=== PATIENT | male | born 1965 | race Caucasian/White ===

== ENCOUNTER 2019-11-09 15:32 | Observation (INO) ==
[2019-11-09] MEDS ORDERED: SODIUM CHLORIDE 0.9% 1000ML 1,000 ML IV ONE (17:11)
[2019-11-09] MEDS ORDERED: KETOROLAC TROMETHAMINE 15 MG/ML VIAL IV STA (17:11)
--- NOTE | 2019-11-09 17:11 | Emergency Department Note ---
History of Present Illness General Chief complaint: Kidney Stone Stated complaint: KIDNEY STONE Time Seen by Provider: 11/09/19 17:07 History of Present Illness Provider complaint: Right-sided flank pain Onset (ago): day(s) 3 Location: abdomen (Right flank) Radiation: non-radiation Severity: severe Maximum Pain Intensity: 6 Current Pain Intensity: 6 54-year-old male presents emergency department for right-sided flank pain. He states he has been having the pain for last 3 days. He rates pain as 10 out of 10 severe. He states that he was recently in the emergency department twice over the last week. He states he was diagnosed with a right-sided kidney stone. He was in the emergency department yesterday and was advised to stay by the doctor or the patient so he can manage pain at home. He states he can no longer bear the pain at home anymore. He reports no fevers. He reports nausea but no vomiting. He reports mild hematuria. No dysuria. Home Medications Home Medications Medication Instructions Recorded Confirmed Type oxycodone 5 mg PO Q6H PRN #14 tab 11/07/19 11/09/19 Rx tamsulosin [Flomax] 0.4 mg PO DAILY #7 cap 11/07/19 11/09/19 Rx hydrocodone-acetaminophen [[place]] 1 tab PO Q6H PRN #14 tab 11/08/19 11/09/19 Rx Allergies Allergy/AdvReac Type Severity Reaction Status Date / Time No Known Allergies Allergy Unverified 11/09/19 16:46 Past Med/Surg History Social History Preferred Language: Lebanese Communication Ability: Effective Glass Breaker Required: No Beliefs That Will Affect Care: None Current Living Situation: Alone Other Information That Helps Us Care for You: No Feels Safe at Home: Yes Safety Concerns: Feels Safe At This Time Smoking Status: Never smoker Do You Dip or Chew Tobacco: No ; Hx Alcohol Use: Yes Alcohol Intake Frequency: Weekly Hx Substance Use: No Review of Systems A total of 10 systems reviewed and were otherwise negative Physical Exam Vital Signs Vital Signs - 24 hr 11/09/19 15:40 11/09/19 17:31 11/09/19 18:00 Temperature 37.6 C H Temperature Source Oral Pulse Rate 76 70 69 Pulse Rate from SpO2 Sensor 71 72 Respiratory Rate 18 26 H 15 Respiratory Effort / Characteristics Non-Labored Spontaneous Respiratory Depth Normal Respiratory Pattern Regular Blood Pressure 151/87 H 167/104 H 144/85 H Blood Pressure Mean 108 119 91 Pulse Oximetry 94 97 91 Oxygen Delivery Method Room Air Room Air Sepsis Recent Fever Within 48 Hours No Sepsis New/Unexplained Change in Mental Status No Sepsis Action Taken by Nursing No Action Required Physical Exam GENERAL: He is oriented to person, place, and time. He appears well-developed and well-nourished. He does not appear distressed. HENT: Exam performed. - Head: Normocephalic and atraumatic. - Right Ear: External ear normal. No mastoid tenderness. - Left Ear: External ear normal. No mastoid tenderness. - Mouth/Throat: The oropharynx is clear and moist. No trismus in the jaw. No dental abscesses or uvula swelling. No oropharyngeal exudate or tonsillar abscesses. EYES: Conjunctivae and EOM are normal. Pupils are equal, round, and reactive to light. Right eye exhibits no discharge. Left eye exhibits no discharge. No scleral icterus. NECK: Normal range of motion. Neck supple. No JVD present. No spinous process tenderness present. No carotid bruit present. No rigidity. No tracheal deviation and normal range of motion present. No Brudzinski's sign and no Kernig's sign noted. CV: Normal rate, regular rhythm, normal heart sounds and intact distal pulses. There is no peripheral edema. Palpable radial pulses bue. PULM/CHEST: Effort normal and breath sounds normal. No respiratory distress. No stridor. He has no wheezes. He has no rales. - Chest Wall: He exhibits no tenderness. ABD: The abdomen is soft. Bowel sounds are normal. He has no distension. No mass is present. There is no tenderness. There is no rebound, no guarding, no Gómez's sign and no tenderness at McBurney's point. Rovsig negative. Right- sided CVA tenderness. MUSC/SKEL: Normal range of motion. There is no peripheral edema, tenderness or deformity. LYMPH: No cervical adenopathy. NEURO: He is alert and oriented to person, place, and time. He has normal strength. No cranial nerve deficit or sensory deficit. Coordination and gait normal. GCS eye subscore is 4. GCS verbal subscore is 5. GCS motor subscore is 6. Cerebellar tests wnl. SKIN: Skin is warm and dry. He is not diaphoretic. PSYCH: He has a normal mood and affect. Behavior is normal. Judgment and thought content normal. Course Course 1709: The patient was evaluated in room C1. A complete history and physical exam was performed. EMR reviewed. This is the patient's third visit to the emergency department in the last 3 days. On November 06 the patient had an obstructing right kidney stone measuring 4.5 mm with resultant right hydroureteronephrosis. He was offered inpatient admission on his previous vis its but declined. Patient will be admitted to the hospitalist service for pain control to be evaluated by urology. Administered Medications Sodium Chloride (Nss 1000ml) 1,000 mls @ 125 mls/hr IV .Q8H CHILO Stop: 11/10/19 10:00 Last Admin: 11/09/19 20:00 Dose: 125 mls/hr Documented by: [id number] Discontinued Medications Sodium Chloride (Nss 1000ml) 1,000 mls @ 999 mls/hr IV .Q1H1M ONE Stop: 11/09/19 18:11 Last Infusion: 11/09/19 18:37 Dose: 0 mls/hr Documented by: [id number] Admin: 11/09/19 17:32 Dose: 999 mls/hr Documented by: [id number] Ketorolac Tromethamine (Toradol) 15 mg IV NOW STA Stop: 11/09/19 17:12 Last Admin: 11/09/19 17:32 Dose: 15 mg Documented by: [id number] Medical Decision Making Laboratory Data Result diagrams: 11/09/19 17:17 11/09/19 17:17 Lab Results 11/09/19 11/09/19 11/09/19 Range/Units 17:17 17:17 17:30 WBC 11.70 H (4.8-10.8) K/uL RBC 4.92 (4.7-6.1) M/uL Hgb 15.5 (14.0-18.0) g/dL Hct 45.1 (42-52) % MCV 91.7 (80-100) fL MCH 31.5 (25-34) pg MCHC 34.4 (32-36) g/dL RDW Std Deviation 42.3 (36.4-46.3) fL RDW Coeff of Esteban 12.6 (11.5-14.5) % Plt Count 169 (130-400) K/uL MPV 11.0 H (7.4-10.4) fL Immature Gran % (Auto) 0.3 % Neut % (Auto) 84.5 % Lymph % (Auto) 8.2 % [place] % (Auto) 6.6 % Eos % (Auto) 0.2 % Baso % (Auto) 0.2 % Immature Gran # (Auto) 0.03 H (0.00-0.02) K/uL Neut # (Auto) 9.90 H (1.4-6.5) K/uL Lymph # (Auto) 0.96 L (1.2-3.4) K/uL [place] # (Auto) 0.77 H (0.11-0.59) K/uL Eos # (Auto) 0.02 (0-0.5) K/uL Baso # (Auto) 0.02 (0-0.2) K/uL Sodium 134 L (136-145) mmol/L Potassium 3.9 (3.5-5.1) mmol/L Chloride 101 (98-107) mmol/L Carbon Dioxide 29 (21-32) mmol/L Anion Gap 4.0 (3-11) BUN 14 (7-18) mg/dl Creatinine 1.62 H (0.6-1.4) mg/dl Est Cr Clr Drug Dosing 56.4 ml/min Est GFR ( Amer) 54.9 Est GFR (Non-Af Amer) 47.4 BUN/Creatinine Ratio 8.5 L (10-20) Glucose 112 H (70-99) mg/dl Calcium 8.8 (8.5-10.1) mg/dl Urine Color Yellow Urine Appearance Clear (Clear) Urine pH 5.0 (4.5-7.5) Ur Specific [place] 1.015 (1.000-1.030) Urine Protein Negative (Negative) Urine Glucose (UA) Negative (Negative) Urine Ketones Negative (Negative) Urine Blood 2+ H (Negative) Urine Nitrite Negative (Negative) Urine Bilirubin Negative (Negative) Urine Urobilinogen Negative (Negative) Ur Leukocyte Esterase Negative (Negative) Urine WBC (Auto) 1-5 (0-5) /hpf Urine RBC (Auto) 0-4 (0-4) /hpf U Hyaline Cast (Auto) 1-5 (0-5) /lpf U Epithel Cells (Auto) 0-5 (0-5) /lpf Urine Bacteria (Auto) Negative (Negative) MDM Narrative The patient was evaluated in room C1. A complete history and physical exam was performed. EMR reviewed. This is the patient's third visit to the emergency department in the last 3 days. On November 06 the patient had an obstructing right kidney stone measuring 4.5 mm with resultant right hydroureteronephrosis. He was offered inpatient admission on his previous visits but declined. Patient will be admitted to the hospitalist service for pain control to be evaluated by urology. Impression & Plan Calculus of distal ureter, Obstruction of right ureter, Acute kidney injury Discharge Plan Visit Data *Final* Discharge Date/Time: 11/09/19 18:54 Chief Complaint: Kidney Stone Stated Complaint: KIDNEY STONE ED Provider: John Gale Discharge Problem: Calculus of distal ureter, Obstruction of right ureter, Acute kidney injury Patient Disposition: Admitted As Inpatient Discharge Instructions Interventions: ED Discharge Assessment Last Done: 11/09/19 18:54
[2019-11-09 17:37] LABS: Basophils # (auto) 0.02 K/uL (0-0.2); Basophils % (auto) 0.2 %; Eosinophils # (auto) 0.02 K/uL (0-0.5); Eosinophils % (auto) 0.2 %; Hematocrit (blood only) 45.1 % (42-52); Hemoglobin 15.5 g/dL (14.0-18.0); Immature Granulocytes # (auto) 0.03 K/uL (0.00-0.02); Immature Granulocytes % (auto) 0.3 %; Lymphocytes # (auto) 0.96 K/uL (1.2-3.4); Lymphocytes % (auto) 8.2 %; Mean Corpuscular Hemoglobin 31.5 pg (25-34); Mean Corpuscular Hgb Conc 34.4 g/dL (32-36); Mean Corpuscular Volume 91.7 fL (80-100); Monocytes # (auto) 0.77 K/uL (0.11-0.59); Monocytes % (auto) 6.6 %; Neutrophils % (auto) 84.5 %; Platelet Count 169 K/uL (130-400); RDW Coefficient of Variation 12.6 % (11.5-14.5); RDW Standard Deviation 42.3 fL (36.4-46.3); Red Blood Count 4.92 M/uL (4.7-6.1)
[2019-11-09 17:44] LABS: BUN Creatinine Ratio 8.5 (10-20); Calcium 8.8 mg/dl (8.5-10.1); Creatinine Clr Calc Pharmacy 56.4 ml/min; Est GFR (African American) 54.9; Est GFR (Non-African American) 47.4; Potassium 3.9 mmol/L (3.5-5.1)
[2019-11-09 17:48] LABS: Appearance Urine Clear (Clear); Bacteria Urine Automated Negative (Negative); Bilirubin Urine Negative (Negative); Blood Urine 2+ (Negative); Color Urine Yellow; Epithelial Cell Urine Auto 0-5 /lpf (0-5); Glucose Urine UA Negative (Negative); Ketones Urine Negative (Negative); Leukocyte Esterase Urine Negative (Negative); Nitrite Urine Negative (Negative); Protein Urine Negative (Negative); RBC Urine Automated 0-4 /hpf (0-4); Specific Gravity Urine 1.015 (1.000-1.030); Urobilinogen Urine Negative (Negative)
--- NOTE | 2019-11-09 18:05 | History & Physical Report ---
Date of Service November 09, 2019 Assessment & Plan (1) Calculus of distal ureter: (2) Obstruction of right ureter: This is a 54yo M with no known PMH who presents with continued renal colic x 3 days with known obstructing R distal ureteral stone. Has been seen in the ED for the past 3 days for right lower back and flank pain CT abdomen pelvis on 11/06 that shows 4.5 mm distal right ureteral stone with obstruction IV fluids, repeat KUB in AM, pain control, flomax, routine urology consult (3) Acute kidney injury: Cr elevated at 1.62 today (from 1.3 2 days prior) In setting of obstructing kidney stone Continue to monitor renal function DVT Ppx: SCD Code status: FULL PCP: Has followed with Dr. Uriarte in the past - needs new PCP Dispo: Admitted to med/surg. Plan to return home once medically stable. Patient seen in collaboration with Dr. Keller. Please see addendum. History of Present Illness Chief Complaint: R ureteral stone Primary Care Provider: NO PCP This is a 54yo M with no known PMH who presents with continued renal colic x 3 days. Patient has been seen in the ED for the past 3 days since pain began in his right lower back and flank. Describes pain as intermittent with some radiation to right suprapubic area. Pain is exacerbated with movement. Denies any fever, chills, nausea or vomiting. Does have some abdominal bloating and constipation. Had CT abdomen pelvis on 11/06 that shows 4.5 mm distal right ureteral stone with obstruction. Was discharged home on Flomax and OxyIR but returned the following day due to continued pain. KUB repeated yesterday showed similar findings. Returns today with continued pain and will be admitted for pain control and urology consult. Denies headache, lightheadedness, cough, chest pain, palpitations, shortness of breath, dysuria or diarrhea. Has followed with PCP Dr. Uriarte in the past. Allergies Allergy/AdvReac Type Severity Reaction Status Date / Time No Known Allergies Allergy Unverified 11/09/19 16:46 Home Medications Home Medications Medication Instructions Recorded Confirmed Type oxycodone 5 mg PO Q6H PRN #14 tab 11/07/19 11/09/19 Rx tamsulosin [Flomax] 0.4 mg PO DAILY #7 cap 11/07/19 11/09/19 Rx hydrocodone-acetaminophen [[place]] 1 tab PO Q6H PRN #14 tab 11/08/19 11/09/19 Rx Past Med/Surg History Medical History (Updated 11/09/19 @ 18:46 by Julienne Jackson PA-C) No pertinent past medical history No significant family history Surgical History No significant past surgical history Social History (Updated 11/09/19 @ 18:44 by Julienne Jackson PA-C) Preferred Language: Jordanian Current Living Situation: Alone Feels Safe at Home: Yes Smoking Status: Never smoker Hx Alcohol Use: Yes Alcohol Intake Frequency: Weekly Hx Substance Use: No Review of Systems Review of Systems: At least ten systems reviewed and negative except as noted in the HPI. Physical Exam Physical Exam: Please see Dr. Keller's addendum for physical exam details. Results & Data Results & Data ([facility]) Vital Signs (Past 12 Hours) Vital Signs Temp Pulse Resp BP Pulse Ox 11/09/19 17:31 70 26 H 167/104 H 97 11/09/19 15:40 37.6 C H 76 18 151/87 H 94 Laboratory Results Short CBC 11/09/19 Range/Units 17:17 WBC 11.70 H (4.8-10.8) K/uL Hgb 15.5 (14.0-18.0) g/dL Hct 45.1 (42-52) % Plt Count 169 (130-400) K/uL BMP 11/09/19 17:17 Sodium 134 L Potassium 3.9 Chloride 101 Carbon Dioxide 29 BUN 14 Creatinine 1.62 H Glucose 112 H Calcium 8.8 Urine 11/09/19 Range/Units 17:30 Urine Color Yellow Urine Appearance Clear (Clear) Urine pH 5.0 (4.5-7.5) Ur Specific [place] 1.015 (1.000-1.030) Urine Protein Negative (Negative) Urine Glucose (UA) Negative (Negative) Code Status & VTE Plan VTE Prophylaxis Plan VTE Prophylaxis will be ordered: Yes Supervising Physician Co-Signing Physician Notes I, Dr. Rylan Keller, have seen and examined the patient Mauricio Romeo with physician talent acquisition assistant and would like to comment that On exam: General: no acute distress HEENT: normal Heart: regular rate, regular rhythm Lungs: no wheezing, regular respiratory rate, on room air, clear to auscultation bilaterally Abdomen: soft, nontender, positive bowel sounds Back: right flank tenderness on percussion Extremities: no edema Neuro: no focal deficits Psych: awake and alert, verbal Assessment and Plan -This is a patient with flank pain from 4 mm distal right ureteral calculus. Jeimy brennan initially presented to ED on 11/08/2019 when he was discharged directly from ED. But returns again on 11/09/2019 for pain control and further re-evaluation. -plan is to give normal saline IV hydration, give tamsulosin (Flomax). -prn pain medications of acetaminophen, oxycodone, dilaudid based on increasing levels of pain severity -NPO after midnight in case he needs Urology procedure for stone extraction. Check the urine analysis and give ceftriaxone 1 gram IV q24 hours for now as pre-op antibiotics in case procedure were to be done on this hospital visit -monitor renal function -Full Code Status. Next of kin is Janki ([phone]) -agree with other assessment and plans as documented by physician talent acquisition assistant ?
[2019-11-09] MEDS ORDERED: HYDROmorphone INJ 0.5 MG/0.5 ML SYR IV PRN (19:25)
[2019-11-09] MEDS ORDERED: ACETAMINOPHEN 500 MG TAB PO PRN (19:25)
[2019-11-09] MEDS ORDERED: OXYCODONE HCL IR 5 MG TAB (IMMEDIATE RELEASE) PO PRN (19:25)
[2019-11-09] MEDS: SODIUM CHLORIDE 0.9% 1000ML 1,000 ML IV SCH (20:00)
[2019-11-10] MEDS: SODIUM CHLORIDE 0.9% 1000ML 1,000 ML IV SCH (04:04)
[2019-11-10 06:22] LABS: Hematocrit (blood only) 41.1 % (42-52); Hemoglobin 13.3 g/dL (14.0-18.0); Mean Corpuscular Hgb Conc 32.4 g/dL (32-36); Mean Corpuscular Volume 92.6 fL (80-100); Mean Platelet Volume 10.8 fL (7.4-10.4); Platelet Count 164 K/uL (130-400); RDW Coefficient of Variation 12.6 % (11.5-14.5); RDW Standard Deviation 42.5 fL (36.4-46.3); Red Blood Count 4.44 M/uL (4.7-6.1); White Blood Count 8.33 K/uL (4.8-10.8)
[2019-11-10 07:01] LABS: Calcium 7.9 mg/dl (8.5-10.1); Creatinine Clr Calc Pharmacy 87.6 ml/min; Est GFR (African American) 93.9; Potassium 3.6 mmol/L (3.5-5.1)
[2019-11-10] MEDS ORDERED: ACETAMINOPHEN 325 MG TAB PO PRN (07:24)
--- NOTE | 2019-11-10 07:33 | Urology Consultation ---
Date of Consultation November 10, 2019 Assessment & Plan (1) Calcium nephrolithiasis: Nephrolithiasisbilateral, distal right ureteral calculus, left renal calculus Given improvement in symptoms I think continued observation for the right side would be warranted as I suspect he may have already passed the stone. He has had a notable change in creatinine, white count, symptoms He has not yet seen the stone pass but I suspect it may be in the bladder Left renal calculus can be addressed as an outpatient - likely a good candidate for ESWL I would plan to keep him in-house until around lunchtimeif he is asymptomatic throughout that time I would plan for discharge home History of Present Illness Attending Physician: Rylan Keller MD History of Present Illness 54-year-old gentleman who is been in the emergency room for the past 3 days with intermittent appearance of secondary to pain related to a distal right ureteral stone. Yesterday he was finally admitted to the hospital secondary to renal dysfunction with a creatinine of 1.6 and intractable pain He progressed extremely well overnight and his pain was resolved Leukocytosis resolved overnight and creatinine normalized to 1.0 He has not yet seen a stone pass but he remains pain-free His most recent imaging was in the form of a KUB on 11/08/2019the stone was quite distal at that time, he had a CT on 11/06 showing the stone to be in a similar position but slightly more proximal. He additionally has a notable left renal calculus Is previously seen Dr. Gandara in the office but not for some time He has never required stone surgery in the past Allergies Allergy/AdvReac Type Severity Reaction Status Date / Time No Known Allergies Allergy Unverified 11/09/19 16:46 Home Medications Home Medications Medication Instructions Recorded Confirmed Type oxycodone 5 mg PO Q6H PRN #14 tab 11/07/19 11/09/19 Rx tamsulosin [Flomax] 0.4 mg PO DAILY #7 cap 11/07/19 11/09/19 Rx hydrocodone-acetaminophen [[place]] 1 tab PO Q6H PRN #14 tab 11/08/19 11/09/19 Rx Patient History Medical History Acute kidney injury (Acute) Calculus of distal ureter (Acute) No pertinent past medical history No significant family history Surgical History No significant past surgical history Social History Preferred Language: Omani Communication Ability: Effective Equine Vet Required: No Beliefs That Will Affect Care: None Current Living Situation: Alone Other Information That Helps Us Care for You: No Feels Safe at Home: Yes Safety Concerns: Feels Safe At This Time Smoking Status: Never smoker Do You Dip or Chew Tobacco: No ; Hx Alcohol Use: Yes Alcohol Intake Frequency: Weekly Hx Substance Use: No Review of Systems Constitutional: no fever, no chills and no fatigue Eyes: no worsening vision Ear, Nose, Mouth, Throat: no facial pain and no pain with swallowing Respiratory: no cough and no dyspnea Cardiovascular: no chest pain and no palpitations Gastrointestinal: no abdominal pain, no nausea and no vomiting Musculoskeletal: no back pain Integumentary: no rash and no urticaria Neurologic: no gait abnormality and no unsteadiness Psychiatric: no behavioral changes and no depression Endocrine: no fatigue Physical Exam Constitutional: well developed and well nourished Neck: neck nontender Respiratory: normal respiratory effort; no respiratory distress and does not use accessory muscles Cardiovascular: Rate/Rhythm: regular rate Vessels: radial pulses present Extremities: no edema Gastrointestinal (Abdomen): Inspection/Auscultation: abdomen normal to inspection Percussion/Palpation: abdomen soft; abdomen nontender and no guarding Musculoskeletal: Head/Neck/Chest: normocephalic and head atraumatic Extremities: extremities normal to inspection Skin: no rashes and no lesions Trauma: no evidence of skin trauma Neurologic: awake; not obtunded Speech / Cognition: normal speech Motor/Sensory: no tremor Psychiatric: Orientation: alert and oriented x 3 Genitourinary: no CVA tenderness Lymphatic: no lymphadenopathy Results & Data Vital Signs (Past 12 Hours) Vital Signs Temp Pulse Resp BP BP Pulse Ox 11/10/19 07:02 36.9 C 72 18 117/71 94 11/09/19 23:24 36.9 C 75 15 131/80 93 PG Care Time/CCT Total # of Minutes Spent Total Time Spent with Patient: Total time spent is greater than 50% in coordination of care (as documented) at patient's floor/unit and/or counseling patient: Coding Level of Care Code 70431 Inpt Consult Level 3 Diagnoses Calcium nephrolithiasis N20.0
[2019-11-10] MEDS ORDERED: SODIUM CHLORIDE 0.9% 1000ML 1,000 ML IV SCH (07:45)
[2019-11-10] MEDS ORDERED: TAMSULOSIN HCL 0.4 MG CAP PO SCH (09:00)
--- NOTE | 2019-11-10 09:53 | XRay Report ---
XR KUB/Abdomen 1 view CLINICAL HISTORY: comparison- R ureteral stone COMPARISON STUDY: 11/08/2019, CT scan dated 11/07/2019 FINDINGS: There is no pathologic bowel dilatation. There is a faint calcification projected over the right sacrum which may represent the previously described distal right ureteral calculus, or represen t seminal vesicle calcifications. There is a 5 mm upper pole left renal calculus. IMPRESSION: 1. Left-sided nephrolithiasis 2. Nonspecific calcific densities projected over the right hemisacrum. It is difficult to differentia te the patient's previously described distal right ureteral calculus from seminal vesicle calcificati ons. ACT 112: Negative or not required by law. Electronically signed by: Tremayne Cleveland M.D. 11/10/2019 9:52 AM
--- NOTE | 2019-11-10 10:40 | Hospitalist Progress Note ---
Date of Service November 10, 2019 Assessment & Plan (1) Calculus of distal ureter: Nephrolithiasisbilateral ( distal right ureteral calculus with obstruction of right ureter, left renal calculus) (2) Obstruction of right ureter: -This is a 54yo M with no known PMH who presents with continued renal colic x 3 days with known obstructing R distal ureteral stone. -Has been seen in the ED for the past 3 days for right lower back and flank pain CT abdomen pelvis on 11/06 that shows 4.5 mm distal right ureteral stone with obstruction and also 5 mm upper pole left renal calculus -patient was given IV fluids, ceftriaxone, tamsulosin and placed under obs ervation on 11/09/2019 -Follow up KUB on 11/10/2019 is non conclusive about whether patient had passed obstructing right kidney stone "There is no pathologic bowel dilatation. There is a faint calcification projected over the right sacrum which may represent the previously described distal right ureteral calculus, or represent seminal vesicle calcifications. There is a 5 mm upper pole left renal calculus. IMPRESSION: 1. Left-sided nephrolithiasis 2. Nonspecific calcific densities projected over the right hemisacrum. It is difficult to differentiate the patient's previously described distal right ureteral calculus from seminal vesicle calcifications: -This equivocal imaging findings were discussed with patient by hospitalist and patient was offered by hospitalist to stay further for IV hydration but patient prefers to go home with outpatient follow up with [facility] of Dr. Davison (or his colleagues). Acute kidney injury resolved while on IV fluids and no infection on admission urine analysis. Patient's pain symptoms have improved overall -In addition to assessment of right kidney stone, Dr. Davison commented that Left renal calculus can be addressed as an outpatient - likely a good candidate for ESWL -Patient should follow up with [facility] with Dr. Davison or his colleagues [facility] [place] [address] -Patient should follow up with primary care doctor -Hospitalist doctor have sent electronic prescription of tamsulosin (flomax) 0.4 mg daily for 7 days sent electronically to [facility]'s pharmacy, along with acetaminophen 325 mg q6 hours prn for pain or fever. Patient reports he has narcotic pain medications at home (3) Acute kidney injury: -11/09/2019 Creatinine elevated at 1.62 in setting of obstructing kidney stone -11/10/2019 creatinine 1 on 11/10/2019 after the IV fluids. acute kidney injury resolved Admission and Anticipated Discharge Date Admission Date: November 09, 2019 Subjective denies flank pain today. he reports his pain is resolved at this time. no abdomen pain. no shortness of breath. no chest pain. no palpitations. no headache. no dizziness. patient wishes to be discharged after all options discu ssed Review of Systems Review of Systems: All systems reviewed & are unremarkable except as noted in Subjective Physical Exam Constitutional: comfortable Eyes: PERRL, conjunctivae normal, anicteric sclerae EOM intact bilaterally ENMT: external ear and nose normal, oropharynx normal Neck: normal visual inspection Respiratory: normal respiratory effort, lungs clear to auscultation Cardiovascular: Rate/Rhythm: regular rate and regular rhythm Gastrointestinal (Abdomen): normal bowel sounds, soft, nontender, no hepatosplenomegaly Musculoskeletal: Head/Neck/Chest: normocephalic and head atraumatic Neurologic: PERRL, EOMI, accommodation nl, no face palsy, no dysarthria CN's II-XI intact bilaterally Psychiatric: A+Ox3, euthymic affect Results & Data Results & Data ([facility]) Vital Signs (Past 12 Hours) Vital Signs Temp Pulse Resp BP BP Pulse Ox 11/10/19 10:30 36.9 C 72 18 131/80 117/71 94 11/10/19 07:02 36.9 C 72 18 117/71 94 11/09/19 23:24 36.9 C 75 15 131/80 93
--- NOTE | 2019-11-10 10:42 | Discharge Summary ---
Date of Service November 10, 2019 Admission HPI Per Admitting Provider This is a 54yo M with no known PMH who presents with continued renal colic x 3 days. Patient has been seen in the ED for the past 3 days since pain began in his right lower back and flank. Describes pain as intermittent with some radiation to right suprapubic area. Pain is exacerbated with movement. Denies any fever, chills, nausea or vomiting. Does have some abdominal bloating and constipation. Had CT abdomen pelvis on 11/06 that shows 4.5 mm distal right ureteral stone with obstruction. Was discharged home on Flomax and OxyIR but returned the following day due to continued pain. KUB repeated yesterday showed similar findings. Returns today with continued pain and will be admitted for pain control and urology consult. Denies headache, lightheadedness, cough, chest pain, palpitations, shortness of breath, dysuria or diarrhea. Has followed with PCP Dr. Uriarte in the past. Principal Diagnosis Nephrolithiasisbilateral ( distal right ureteral calculus with obstruction of right ureter, left renal calculus) acute kidney injury (resolved) Discharge Exam Constitutional comfortable Eyes PERRL, conjunctivae normal, anicteric sclerae EOM intact bilaterally ENMT external ear and nose normal, oropharynx normal Neck normal visual inspection Respiratory normal respiratory effort, lungs clear to auscultation Cardiovascular Rate/Rhythm: regular rate and regular rhythm Gastrointestinal (Abdomen) normal bowel sounds, soft, nontender, no hepatosplenomegaly Musculoskeletal Head/Neck/Chest: normocephalic and head atraumatic Neurologic PERRL, EOMI, accommodation nl, no face palsy, no dysarthria CN's II-XI intact bilaterally Psychiatric A+Ox3, euthymic affect Discharge Data Allergies Allergy/AdvReac Type Severity Reaction Status Date / Time No Known Allergies Allergy Unverified 11/09/19 16:46 Consultations 11/09/19 17:53 ED Decision to Admit Stat 11/10/19 08:00 Consult Urology Routine Hospital Course (1) Calculus of distal ureter: Nephrolithiasisbilateral ( distal right ureteral calculus with obstr uction of right ureter, left renal calculus) (2) Obstruction of right ureter: -This is a 54yo M with no known PMH who presents with continued renal colic x 3 days with known obstructing R distal ureteral stone. -Has been seen in the ED for the past 3 days for right lower back and flank pain CT abdomen pelvis on 11/06 that shows 4.5 mm distal right ureteral stone with obstruction and also 5 mm upper pole left renal calculus -patient was given IV fluids, ceftriaxone, tamsulosin and placed under observation on 11/09/2019 -Follow up KUB on 11/10/2019 is non conclusive about whether patient had passed obstructing right kidney stone "There is no pathologic bowel dilatation. There is a faint calcification projected over the right sacrum which may represent the previously described distal right ureteral calculus, or represent seminal vesicle calcifications. There is a 5 mm upper pole left renal calculus. IMPRESSION: 1. Left-sided nephrolithiasis 2. Nonspecific calcific densities projected over the right hemisacrum. It is difficult to differentiate the patient's previously described distal right ureteral calculus from seminal vesicle calcifications: -This equivocal imaging findings were discussed with patient by hospitalist and patient was offered by hospitalist to stay further for IV hydration but patient prefers to go home with outpatient follow up with [facility] of Dr. Davison (or his colleagues). Acute kidney injury resolved while on IV fluids and no infection on admission urine analysis. Patient's pain symptoms have im proved overall -In addition to assessment of right kidney stone, Dr. Davison commented that Left renal calculus can be addressed as an outpatient - likely a good candidate for ESWL -Patient should follow up with [facility] with Dr. Davison or his colleagues [facility] [place] [address] -Patient should follow up with primary care doctor -Hospitalist doctor have sent electronic prescription of tamsulosin (flomax) 0.4 mg daily for 7 days sent electronically to [facility]'s pharmacy, along with acetaminophen 325 mg q6 hours prn for pain or fever. Patient reports he has narcotic pain medications at home (3) Acute kidney injury: -11/09/2019 Creatinine elevated at 1.62 in setting of obstructing kidney stone -11/10/2019 creatinine 1 on 11/10/2019 after the IV fluids. acute kidney injury resolved Total Time Total Time Spent Total Time Spent (In Minutes): 40 minutes Total Time Includes: Examination of the Patient, Discharge Planning, Medication Reconciliation and Communication With Other Providers Discharge Plan Discharge Items Patient Disposition: Home - Self-Care Reason For Visit: R URETERAL STONE WITH HYDRO,MELODY Discharge Diagnosis: Nephrolithiasisbilateral ( distal right ureteral calculus with obstruction of right ureter, left renal calculus) acute kidney injury (resolved) Activity: Per Instructions section Non-emergency contact: Primary Care Provider and [employer] Level [employer] Call non-emergency contact if: you have any medication questions Follow-up/Referrals: PCP,NO [Primary Care Provider] - Diet: Regular Addtl Attending Provider Instructions: Follow up KUB on 11/10/2019 is non conclusive about whether patient had passed obstructing right kidney stone "There is no pathologic bowel dilatation. There is a faint calcification pr ojected over the right sacrum which may represent the previously described distal right ureteral calculus, or represent seminal vesicle calcifications. There is a 5 mm upper pole left renal calculus. IMPRESSION: 1. Left-sided nephrolithiasis 2. Nonspecific calcific densities projected over the right hemisacrum. It is difficult to differentiate the patient's previously described distal right uret eral calculus from seminal vesicle calcifications: This equivocal imaging findings were discussed with patient by hospitalist and patient was offered by hospitalist to stay further for IV hydration but patient prefers to go home with outpatient follow up with [facility] of Dr. Davison (or his colleagues). Acute kidney injury resolved while on IV fluids and no infection on admission urine analysis. Patient's pain symptoms have improved overall In addition to assessment of right kidney stone, Dr. Davison commented that Left renal calculus can be addressed as an outpatient - likely a good candidate for ESWL Patient should follow up with [facility] with Dr. Davison or his colleagues [facility] [address] [address] Patient should follow up with primary care doctor Hospitalist doctor have sent electronic prescription of tamsulosin (flomax) 0.4 mg daily for 7 days [facility], along with acetaminophen 325 mg q6 hours prn for pain or fever. Patient reports he has narcotic pain medications at home Pending Studies at Discharge: No Stand-Alone Forms: My [facility], Smoking Cessation Medications and DC Order Prescriptions: New tamsulosin 0.4 mg Capsule 0.4 mg PO DAILY 7 Days Qty: 7 RF: 0 acetaminophen 325 mg tablet 325 mg PO Q6H PRN (Reason: fever or mild pain) 7 Days Qty: 28 RF: 0 Discontinued oxycodone 5 mg tablet 5 mg PO Q6H PRN (Reason: pain) Qty: 14 RF: 0 tamsulosin [Flomax] 0.4 mg capsule 0.4 mg PO DAILY Qty: 7 RF: 0 hydrocodone-acetaminophen [[place]] 5-325 mg tablet 1 tab PO Q6H PRN (Reason: pain) Qty: 14 RF: 0 Discharge Orders: Discharge Order (Routine); Ordered 11/10/19 Ordered By: Rylan Kirby/Other Patient Handouts: Kidney Stones Risk, Kidney Stones, Kidney Stones Prevent Admission Data Admit Date/Time: 11/09/19 18:04 Attending Provider: Rylan Keller Admit Provider: Rylan Keller Primary Care Provider: PCP,NO Other Providers: Rylan Keller ; Bernardo Davison
== END 2019-11-10 11:00 | disposition home or self-care (01) ==
LOC: ED 15:32 → INTOOBSV 18:04 → 3N 18:04